=== PATIENT | female | born 1995 | race Caucasian/White ===

== ENCOUNTER 2019-10-16 00:44 | Emergency (ER) | payer OTHER ==
[~2019-10-16] VITALS: Ht 172.7 cm; Wt 81.8 kg
[2019-10-16 00:49] VITALS: BP 109/69
[2019-10-16] MEDS ORDERED: acetaminophen 325mg tablet PO ONE (01:10)
[2019-10-16] MEDS ORDERED: ERYT1OIN6 LEFTEYE (01:10)
== END 2019-10-16 01:29 | disposition home or self-care (01) ==
LOC: ER 00:45
DX: H10.89 Other conjunctivitis (principal); H57.12 Ocular pain, left eye; Z79.2 Long term (current) use of antibiotics
CPT/HCPCS: 99283